=== PATIENT | male | born 1960 | race Caucasian/White ===

== ENCOUNTER 2023-10-12 16:33 | Emergency (ER) | payer OTHER ==
[~2023-10-12] VITALS: Ht 182.9 cm; Wt 90.9 kg
[2023-10-12 16:45] VITALS: BP 123/78; TEMP 98
[2023-10-12] MEDS ORDERED: Ketorolac 15 MG/ML VIAL IM ONE (17:15)
[2023-10-12] MEDS ORDERED: MEDROL 4MG DOSPA4 MG PO (18:28)
[2023-10-12] MEDS ORDERED: NORCO 325 MG-51 TAB PO (18:42)
[2023-10-12] MEDS ORDERED: Home HYDROcodone/Acetaminophen 5/325 MG #4 TABS/PACK PO ONE (18:45)
[2023-10-12 18:51] VITALS: PULSE 91
== END 2023-10-12 18:53 | disposition home or self-care (01) ==
LOC: COL.ER 16:33
DX: S39.012A Strain of muscle, fascia and tendon of lower back, initial encounter (principal); M54.32 Sciatica, left side; V89.2XXA Person injured in unspecified motor-vehicle accident, traffic, initial encounter; Y92.410 Unspecified street and highway as the place of occurrence of the external cause
CPT/HCPCS: J1885